=== PATIENT | male | born 1975 | race Caucasian/White ===

== ENCOUNTER 2017-07-23 14:11 | Outpatient (CLI) | payer BC ==
--- NOTE | 2017-07-23 15:42 | ULT ---
RENAL ULTRASOUND: 07/23/17 COMPARISON: None. HISTORY: Left flank pain and hematuria. TECHNIQUE: Multiplanar garrido scale and colon doppler images are obtained in a renal ultrasound. FINDINGS: The kidneys are normal in echogenicity without hydronephrosis or shadowing calculi and measure 11.5 and 13.3 cm in length on the right and left, respectively. The remainder of the visualization of the urinary bladder is unremarkable. IMPRESSION: Unremarkable renal ultrasound. POS: MIS[facility]
== END 2017-07-23 14:12 | disposition home or self-care (01) ==
LOC: SCSULT 14:11
PROVIDERS: ATTEND Family Medicine
DX: R31.9 Hematuria, unspecified (principal)
CPT/HCPCS: 76770

== ENCOUNTER 2018-12-16 09:45 | Outpatient (CLI) | payer OTHER ==
--- NOTE | 2018-12-16 12:17 | RAD ---
CERVICAL SPINE 2 VIEWS: HISTORY: Neck pain. FINDINGS: C7 and T1 are mostly obscured on the lateral view. No open mouth view is performed. There are minim al disk-osteophytosis changes mostly at C6-C7 with some uncovertebral hypertrophic changes and facet arthrosis. No evidence for significant malalignment. No prevertebral soft tissue swelling. IMPRESSION: Evidence for cervical spondylosis. POS: C
== END 2018-12-16 09:46 | disposition home or self-care (01) ==
LOC: RAD 09:45
PROVIDERS: ATTEND Neurological Surgery
DX: M47.22 Other spondylosis with radiculopathy, cervical region (principal)
CPT/HCPCS: 72040

== ENCOUNTER 2018-12-23 08:53 | Outpatient (CLI) | payer OTHER ==
--- NOTE | 2018-12-23 12:00 | MRI ---
MRI CERVICAL SPINE NONCONTRAST: Date: 12/23/18 HISTORY: 43-year-old male with cervical radiculopathy, M54.12. COMPARISON: None. FINDINGS: Incidental finding of a 2.0 x 1.5 cm T2-hyperintense and T1-intermediate to hypointense nodule in the left lobe of the thyroid gland. Cervical spinal canal is diffusely small in caliber on a developmental basis due to congenitally shor t pedicles. This is exacerbated by cervical spondylosis. Vertebral body heights are maintained. No sp ondylolisthesis. C1-2: No central stenosis. C2-3: Mild left facet DJD. Otherwise normal. C3-4: Central small disc extrusion with short distance superior and inferior migration of the small extruded disc material (versus disc-osteophyte complex). Moderate central spinal canal stenosis. Over all mild to moderate degree of central spinal canal stenosis. Small right uncinate process osteophyte s cause mild to moderate right neural foraminal stenosis. No left neural foraminal stenosis. Mild rig ht facet DJD. Normal left facet joint. C4-5: Moderate disc space narrowing. Central and left paracentral focal disc-osteophyte complex mild ly indents the left ventral surface of the spinal cord. Moderate central spinal canal stenosis. Small to moderate size right uncinate process osteophytes cause moderate right neural foraminal stenosis. Small left uncinate process osteophytes cause mild left neural foraminal stenosis. Minimal or mild bi lateral facet DJD. C5-6: Shallow central and bilateral paracentral disc-osteophyte complex encroaches upon the anterior aspect of the spinal canal, exacerbating the developmentally small caliber of the spinal canal with asymmetrically larger component of the right lateral aspect of the spinal canal, resulting in moderat e central spinal canal stenosis. Bilateral small uncinate process osteophytes. Mild to moderate right neural foraminal stenosis. No left neural foraminal stenosis. Mild to moderate right facet DJD. Esse ntially normal left facet joint. No high grade disc space narrowing. C6-7: Moderate disc space narrowing. Prominent broad based disc-osteophytic bar complex protrudes in to the anterior aspect of the spinal canal, asymmetrically larger at the right lateral aspect of the spinal canal than left, indenting the right ventral surface of the spinal cord, and displacing the sp inal cord posteriorly. Overall severe central spinal canal stenosis. Moderate sized bilateral uncinat e process osteophytes, right larger than left, resulting in severe right neural foraminal stenosis an d moderate left neural foraminal stenosis. Normal bilateral facet joints. C7-T1: No central stenosis. Moderate sized bilateral uncinate process osteophytes. Moderate right ne ural foraminal stenosis. Mild to moderate left neural foraminal stenosis. Bilateral moderate facet DJ D. IMPRESSION: 1. Predominantly mild cervical spondylosis with multilevel mild and moderate degenerative disc disea se, and predominantly mild facet osteoarthrosis, exacerbating a developmentally small caliber spinal canal. 2. At C6-7, there is severe central spinal canal stenosis (especially on the right side), severe rig ht neural foraminal stenosis, and moderate left neural foraminal stenosis. POS: [facility]IS[facility]
== END 2018-12-23 08:54 | disposition home or self-care (01) ==
LOC: TBSIIMAG 08:53
PROVIDERS: ATTEND Neurological Surgery
DX: M50.10 Cervical disc disorder with radiculopathy, unspecified cervical region (principal); M47.22 Other spondylosis with radiculopathy, cervical region; M48.02 Spinal stenosis, cervical region
CPT/HCPCS: 72141

== ENCOUNTER 2019-01-18 05:40 | Day surgery (SDC) | payer OTHER ==
[2019-01-11 14:17] VITALS: BMI 31.8
--- NOTE | 2019-01-17 14:31 | HP ---
This is Bakari Reynolds PA-C dictating a report for Mark Bowman MD. HISTORY OF PRESENT ILLNESS: Mr. Mercado is a pleasant 43-year-old man here for evaluation of severe neck, right upper extremity, shoulder and scapular arm pains that radiated into the hand. This is associated with numbness as well as extreme limitation in the use of his arm given the degree of pain that is caused with movement of his upper extremities. This seems to fit well with a C7 radiculopathy. He has an MRI from [facility] that reveals severe foraminal stenosis secondary to disk osteophyte complex at C6-C7 that would fit well with this. This all began back in July 2018 and has only worsened from there. He attempted home exercise continuously since September, has also attended epidural steroid injections and medications with limited relief. PAST MEDICAL HISTORY: Significant for asthma and seasonal allergies. PAST SURGICAL HISTORY: Appendectomy. CURRENT MEDICATIONS: Serevent, Qvar, Singulair, gabapentin, Zyrtec, and naproxen. ALLERGIES: NO KNOWN DRUG ALLERGIES. PHYSICAL EXAMINATION: GENERAL: The patient is alert and oriented x3. MUSCULOSKELETAL: He is in obvious distress and discomfort. Extreme limitation of motor examination of the right upper extremity secondary to pain. Positive Spurling's to the right. ASSESSMENT: Cervical radiculopathy. PLAN: Dr. Bowman met with the patient, reviewed imaging, advocated for C6-7 anterior cervical discectomy and fusion. He explained to the patient the risks, benefits, and alternatives to the procedure. The patient expressed understanding and would like to move forward with surgery as discussed. I do believe the patient is mentally competent capable of making medical decisions for himself, and we will move forward with surgery as planned. Job ID: [id number]
[2019-01-18] MEDS ORDERED: Midazolam HCl 2 mg/2 ml Vial ONE (06:20)
[2019-01-18] MEDS ORDERED: Fentanyl 250 MCG/5 ML VIAL ONE (06:23)
[2019-01-18] MEDS ORDERED: Thrombin 5000 UNITS/5 ML VIAL ONE (06:24)
[2019-01-18] MEDS ORDERED: Sodium Chloride 0.9% 20 ML ONE (06:32)
[2019-01-18] MEDS ORDERED: Fentanyl 100 MCG/2 ML VIAL ONE ×2 (08:51→09:30)
[2019-01-18] MEDS ORDERED: Tamsulosin HCl 0.4 MG CAP ONE (09:17)
--- NOTE | 2019-01-18 09:59 | OP ---
DATE OF PROCEDURE: 01/18/2019 [employer] [employer] SALESPERSON: Bakari Reynolds PA-C INDICATION: Pain. DIAGNOSIS: C7 radiculopathy. PROCEDURE PERFORMED: Anterior cervical diskectomy and fusion, C6-C7. ANESTHESIA: General. DESCRIPTION OF PROCEDURE: The patient was brought into the operating room and placed under general anesthesia. He was placed on the table in a supine position. A transverse incision was planned over the lateral aspect of his neck. After prepping and draping and after an appropriate preoperative pause, the incision was created. The underlying platysma muscle was identified and incised. A blunt tissue plane anterior to the sternocleidomastoid muscle was used to gain access to the prevertebral space. Self-retaining retractors were then placed in the wound for optimal exposure. After confirming the appropriate level with C-arm fluoroscopy, an annulotomy was performed at C6-C7 disk space were all disk material as well as anterior and posterior osteophytes were removed. Distraction pins were placed and under slight distraction, additional material was removed. After complete decompression, a 7-mm lordotic PEEK cage packed with allograft and autograft material was placed within the interbody space. Distraction pins were removed. Hemostasis was maintained throughout. The wound was then closed in anatomic layers and a pressure dressing was applied. There were no known procedural complications. Job ID: [id number]
[2019-01-18] MEDS ORDERED: Acetaminophen/Codeine 30-300mg Tablet ONE (12:14)
[2019-01-18] MEDS ORDERED: Glycopyrrolate 0.2 MG/ML 5 ML SYRINGE ONE (15:00)
[2019-01-18] MEDS ORDERED: Ketorolac Tromethamine 30 MG/ML VIAL ONE (15:00)
[2019-01-18] MEDS ORDERED: Lidocaine 1% PF 5 ML VIAL ONE (15:00)
[2019-01-18] MEDS ORDERED: Rocuronium Bromide 10 MG/ML (10ML VIAL) ONE (15:00)
[2019-01-18] MEDS ORDERED: Ondansetron PF 4 MG/2 ML Vial ONE (15:00)
[2019-01-18] MEDS ORDERED: PROPOFOL 200 MG/20 ML VIAL ONE (15:00)
== END 2019-01-18 12:30 | disposition home or self-care (01) ==
LOC: SDC 05:40
PROVIDERS: ATTEND Neurological Surgery
PROC: 0RG1071 Fusion of Cervical Vertebral Joint with Autologous Tissue Substitute, Posterior Approach, Posterior Column, Open Approach (ICD-10-PCS; principal; 2019-01-18)
PROC: 0RT30ZZ Resection of Cervical Vertebral Disc, Open Approach (ICD-10-PCS; principal; 2019-01-18)
PROC: 0RG1070 Fusion of Cervical Vertebral Joint with Autologous Tissue Substitute, Anterior Approach, Anterior Column, Open Approach (ICD-10-PCS; principal; 2019-01-18)
PROC: 0RG40A0 Fusion of Cervicothoracic Vertebral Joint with Interbody Fusion Device, Anterior Approach, Anterior Column, Open Approach (ICD-10-PCS; principal; 2019-01-18)
DX: M54.12 Radiculopathy, cervical region (principal); J45.909 Unspecified asthma, uncomplicated
CPT/HCPCS: 76000; C1776; J1885; J2001; J2250; J2405; J2704; J3010

== ENCOUNTER 2019-02-06 15:27 | Outpatient (CLI) | payer OTHER | END 2019-02-06 15:28 | disposition home or self-care (01) | LOC: CTENTCT 15:27 | PROVIDERS: ATTEND Otolaryngology Plastic Surgery within the Head & Neck | DX: J34.2 Deviated nasal septum (principal) | CPT/HCPCS: 70486 ==

== ENCOUNTER 2019-02-22 10:24 | Day surgery (SDC) | payer OTHER ==
[2019-02-21 16:39] VITALS: BMI 30.5
[2019-02-22] MEDS ORDERED: Oxymetazoline HCl 0.05% ( 15 ML ) ONE ×2 (12:23→12:43)
[2019-02-22] MEDS ORDERED: Bacitracin Zinc Ointment 30 gm TUBE ONE (12:43)
[2019-02-22] MEDS ORDERED: Fentanyl 100 MCG/2 ML VIAL ONE ×5 (12:43→15:24)
[2019-02-22] MEDS ORDERED: Lidocaine 1% w/Epinephrine 1:100K 20 ML VIAL ONE (12:43)
[2019-02-22] MEDS ORDERED: Midazolam HCl 2 mg/2 ml Vial ONE (12:43)
[2019-02-22] MEDS ORDERED: Glycopyrrolate 0.2 MG/ML 5 ML SYRINGE ONE (13:51)
[2019-02-22] MEDS ORDERED: Lidocaine 1% PF 5 ML VIAL ONE (13:51)
[2019-02-22] MEDS ORDERED: PROPOFOL 200 MG/20 ML VIAL ONE (13:51)
[2019-02-22] MEDS ORDERED: Ondansetron PF 4 MG/2 ML Vial ONE (13:51)
[2019-02-22] MEDS ORDERED: Rocuronium Bromide 10 MG/ML (10ML VIAL) ONE (13:51)
[2019-02-22] MEDS ORDERED: Dexamethasone 20 MG/5 ML VIAL ONE (13:51)
[2019-02-22] MEDS ORDERED: Promethazine HCl 25 MG/ML VIAL ONE (14:34)
[2019-02-22] MEDS ORDERED: HYDROcodone/Acetaminophen 5/325 mg Tablet ONE ×2 (16:03)
--- NOTE | 2019-02-23 09:50 | OP ---
DATE OF PROCEDURE: 02/22/2019 PREOPERATIVE DIAGNOSES: 1. Chronic rhinosinusitis. 2. Bilateral inferior turbinate hypertrophy. 3. Nasal septal deviation. 4. Nasal obstruction. 5. Snoring. POSTOPERATIVE DIAGNOSES: 1. Chronic rhinosinusitis. 2. Bilateral inferior turbinate hypertrophy. 3. Nasal septal deviation. 4. Nasal obstruction. 5. Snoring. PROCEDURES PERFORMED: 1. Bilateral endoscopic sinus surgery, total ethmoidectomies. 2. Bilateral endoscopic sinus surgery, maxillary antrostomies. 3. Bilateral endoscopic sinus surgery, frontal sinusotomies. 4. Nasal septoplasty. 5. Bilateral inferior turbinate submucosal resection. ESTIMATED BLOOD LOSS: 50 mL. COMPLICATIONS: None. ANESTHESIA: GETA. DESCRIPTION OF PROCEDURE: Patient was taken to the operating room and placed supine on the table. General endotracheal anesthesia was obtained by the anesthesia staff. Tube was secured in the left lower lip. Patient was then placed in the beach chair position, and Afrin pledgets were placed in the nasal cavity. Injections of 1% lidocaine with 1:100,000 epinephrine were made into the nasal septum as well as the inferior turbinates. Patient was then prepped and draped in standard surgical fashion for nasal surgery. Following this, the Afrin pledgets were removed. A Clifford incision was made on the left nasal septum. Submucoperichondrial dissection was performed. The deviated portions of the septum included portions of the cartilage and the bony septum. These isolated areas were removed using 3 cutting rongeurs. There was noted to be a large dorsal and caudal strut, left intact for support of the nose. The mucoperichondrial flaps were then reapproximated using a 4-0 gut stitch. Any straight pieces of cartilage were crushed prior to this and placed between the mucoperichondrial flaps. Following this, the inferior turbinates were then punctured with a submucosal coblation wand, and submucosal coblations were performed of multiple areas of the inferior portion of the anterior inferior turbinate. Please note that the submucosal microdebrider was used to anteriorly and inferiorly resect the submucosal portions of the inferior turbinates. Following this, the inferior turbinates were laterally fractured with a [place] elevator. Following this, a 0-degree endoscope was advanced in the middle meatus. The middle turbinates were identified and were gently medialized. Using a [place] elevator, there was a small howard bullosa present, which was removed with the microdebrider taking down the lateral wall of the middle turbinate. Following this, the uncinate process was identified and was anteriorly fractured bilaterally using a ball-ended probe and was removed using the 0-degree microdebrider and up-biting Blakesley forceps. Following this, the ball-ended probe was then used to identify and palpate the natural maxillary sinus ostia bilaterally. This maxillary sinus ostia was then widened using the curved microdebrider and the straight [place] forceps bilaterally. Following this, the ethmoidal bulla was identified and was punctured on its medial and inferior aspect and was removed using the microdebrider and the up-biting [place] forceps. Following this, the grand lamella was identified and was then punctured into the posterior ethmoidal cells working from posterior to anterior. The ethmoidal cells were opened in a mucosal-sparing technique. Following this, 45-degree scope and the curved microdebrider were then used to further open the anterior ethmoidal cells and frontal recess and frontal sinus ostia bilaterally. Following this, nasal cavity was irrigated. Mirapex was placed in the middle meatus. Hope splints were placed and secured. The patient tolerated the procedure well. Job ID: [id number]
== END 2019-02-22 17:20 | disposition home or self-care (01) ==
LOC: SDC 10:24
PROVIDERS: ATTEND Otolaryngology Plastic Surgery within the Head & Neck
PROC: 099R8ZZ Drainage of Left Maxillary Sinus, Via Natural or Artificial Opening Endoscopic (ICD-10-PCS; principal; 2019-02-22)
PROC: 09TR8ZZ Resection of Left Maxillary Sinus, Via Natural or Artificial Opening Endoscopic (ICD-10-PCS; principal; 2019-02-22)
PROC: 09TQ8ZZ Resection of Right Maxillary Sinus, Via Natural or Artificial Opening Endoscopic (ICD-10-PCS; principal; 2019-02-22)
PROC: 09TL8ZZ Resection of Nasal Turbinate, Via Natural or Artificial Opening Endoscopic (ICD-10-PCS; principal; 2019-02-22)
PROC: 099Q8ZZ Drainage of Right Maxillary Sinus, Via Natural or Artificial Opening Endoscopic (ICD-10-PCS; principal; 2019-02-22)
PROC: 09SM4ZZ Reposition Nasal Septum, Percutaneous Endoscopic Approach (ICD-10-PCS; principal; 2019-02-22)
DX: J34.3 Hypertrophy of nasal turbinates (principal); J32.9 Chronic sinusitis, unspecified; J34.2 Deviated nasal septum; J34.89 Other specified disorders of nose and nasal sinuses; J38.01 Paralysis of vocal cords and larynx, unilateral; J45.909 Unspecified asthma, uncomplicated
CPT/HCPCS: 93005; 93010; J1100; J2001; J2250; J2405; J2550; J2704; J3010

== ENCOUNTER 2019-03-29 13:38 | Outpatient (CLI) | payer OTHER ==
--- NOTE | 2019-03-29 16:35 | MRI ---
MRI LEFT KNEE WITHOUT CONTRAST: 03/29/19 HISTORY: Knee pain. COMPARISON: None. FINDINGS: MEDIAL MENISCUS: Intact. LATERAL MENSICUS: Intact. The ACL, PCL, MCL AND LCL are all intact. EXTENSOR MECHANISM: Quadriceps tendon, patella, and patellar tendon are intact. CARTILAGE: There are multifocal full thickness cartilage fissures in the medial trochlea with subcortical reacti ve marrow changes. This occurs in a focal area measuring 5 x 7 mm. Also, focal areas of chondral davis mination along the medial patella. High grade fissures of the central trochlea. MEDIAL COMPARTMENT: Small osteophyte formation. No chondral defect. LATERAL COMPARTMENT: Intact. Posterior flexion zones are intact. SOFT TISSUES: No significant popliteal bursa effusion. Normal amount of joint fluid. BONES: No fracture or malalignment. No contusion. MUSCLES: The muscle signal and bulk is normal. 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 There is a 5 x 7 mm foci of full thickness cartilage fissuring of the medial trochlea with subcorti myra reactive marrow changes. There are also a 4 x 5 mm area of chondral delamination medial patellar facet as well as high grade cartilage fissures of the central trochlea. POS: [facility]
== END 2019-03-29 13:39 | disposition home or self-care (01) ==
LOC: SCSMRI 13:38
PROVIDERS: ATTEND Orthopaedic Surgery
DX: S83.242A Other tear of medial meniscus, current injury, left knee, initial encounter (principal); M94.262 Chondromalacia, left knee

== ENCOUNTER 2019-06-24 03:41 | Emergency (ER) | payer OTHER ==
[2019-06-24 10:12] LABS: HIV (1/2) Antibody/Antigen Non-Reactive (NonReactive); HIV 1/2 INDEX 0.07 S/CO (<1.00); Hep C IgG Ab Non-Reactive (NonReactive); Hep C Index 0.09 S/CO (0-0.79)
[2019-06-24 10:18] LABS: HBSAB Concentration 855.47 mIU/mL; Hep B Surf AB Reactive (NonReactive)
== END 2019-06-24 04:33 | disposition home or self-care (01) ==
LOC: SCSER 03:41
DX: Z77.21 Contact with and (suspected) exposure to potentially hazardous body fluids (principal); J45.909 Unspecified asthma, uncomplicated
CPT/HCPCS: 86706; 86803; 87389; 99283

== ENCOUNTER 2022-12-07 10:46 | Outpatient (CLI) | payer OTHER | END 2022-12-07 10:47 | disposition home or self-care (01) | LOC: SCSRAD 10:46 | PROVIDERS: ATTEND Nurse Practitioner Family | DX: S69.92XA Unspecified injury of left wrist, hand and finger(s), initial encounter (principal); S61.255A Open bite of left ring finger without damage to nail, initial encounter; W54.0XXA Bitten by dog, initial encounter ==

== ENCOUNTER 2023-01-12 08:06 | Outpatient (CLI) | payer OTHER | END 2023-01-12 08:07 | disposition home or self-care (01) | LOC: SCSMRI 08:06 | PROVIDERS: ATTEND Orthopaedic Surgery Hand Surgery | DX: W54.0XXA Bitten by dog, initial encounter (principal); R60.0 Localized edema ==

== ENCOUNTER 2023-01-22 10:38 | Day surgery (SDC) | payer OTHER ==
[2023-01-20 14:08] VITALS: BMI 33.9
[2023-01-22 11:47] LABS: #Basophils 0.1 thou/uL (0.0-0.2); #Eosinphils 0.1 thou/uL (0.0-0.7); #Monocytes 0.7 thou/uL (0.11-0.59); #Neutrophils 4.9 thou/uL (1.40-6.50); %Eosinophils 1.5 % (0.0-10.0); %Lymphocytes 25.6 % (21.0-51.0); %Monocytes 8.9 % (0.0-10.0); %Neutrophils 63.1 % (42.0-75.0); Hemoglobin 16.9 g/dL (14.0-18.0); Mean Corpuscular HGB CONC 33.7 g/dL (32.0-36.0); Mean Corpuscular Hemoglobin 31.8 pg (27.0-31.0); Mean Corpuscular Volume 94.2 fl (78.0-98.0); Mean Platelet Volume 7.4 fL (7.4-10.4); Platelet Count 266 10x3/uL (130-400); RBC Distribution Width 11.4 % (11.5-14.5); Red Blood Cell (RBC) Count 5.32 mill/uL (4.70-6.10); White Blood Cell (WBC) Count 7.7 10x3/uL (4.8-10.8)
[2023-01-22] MEDS ORDERED: Bacitracin Zinc Ointment 30 gm TUBE ONE (13:48)
[2023-01-22] MEDS ORDERED: Neomycin-Polymyxin 1 ML AMP ONE (13:48)
[2023-01-22] MEDS ORDERED: Bupivacaine PF 0.5% 30 ML VIAL ONE (13:48)
[2023-01-22] MEDS ORDERED: fentaNYL 50 mcg/mL 1 mL Vial ONE (14:32)
[2023-01-22] MEDS ORDERED: Midazolam HCl 2 mg/2 ml Vial ONE (14:32)
[2023-01-22] MEDS ORDERED: Sodium Chloride 0.9% 100 ML ONE (14:42)
[2023-01-22] MEDS ORDERED: CEFAZOLIN 2 GM VIAL ONE (14:42)
[2023-01-22] MEDS ORDERED: Dexamethasone 20 MG/5 ML VIAL ONE (14:50)
[2023-01-22] MEDS ORDERED: Lidocaine 1% PF 5 ML VIAL ONE (14:50)
[2023-01-22] MEDS ORDERED: PROPOFOL 200 MG/20 ML VIAL ONE (14:50)
[2023-01-22] MEDS ORDERED: Ondansetron PF 4 MG/2 ML Vial ONE (14:50)
[2023-01-22] MEDS ORDERED: Ketorolac Tromethamine 30 MG/ML VIAL ONE (16:38)
[2023-01-22] MEDS ORDERED: Vancomycin (BATCH) 1.5 GRAM/300 ML BAG ONE (16:40)
== END 2023-01-22 19:10 | disposition home or self-care (01) ==
LOC: SDC 10:38
PROVIDERS: ATTEND Orthopaedic Surgery Hand Surgery
PROC: 0JNK0ZZ Release Left Hand Subcutaneous Tissue and Fascia, Open Approach (ICD-10-PCS; principal; 2023-01-22)
PROC: 0LT80ZZ Resection of Left Hand Tendon, Open Approach (ICD-10-PCS; principal; 2023-01-22)
DX: M72.0 Palmar fascial fibromatosis [Dupuytren] (principal); M65.842 Other synovitis and tenosynovitis, left hand; G90.50 Complex regional pain syndrome I, unspecified; G58.8 Other specified mononeuropathies; J45.909 Unspecified asthma, uncomplicated; Z86.16 Personal history of COVID-19; Z79.899 Other long term (current) drug therapy; Z88.8 Allergy status to other drugs, medicaments and biological substances; Z98.1 Arthrodesis status
CPT/HCPCS: 85025; 87070; 87205; 88304; 88305; J1100; J1885; J2250; J2405; J2704; J3010; J3370; J3490; S0020

== ENCOUNTER 2023-01-29 12:28 | Day surgery (SDC) | payer OTHER ==
[2023-01-28 12:03] VITALS: BMI 33.9
[2023-01-29] MEDS ORDERED: Sodium Chloride 0.9% 100 ML ONE (15:05)
[2023-01-29] MEDS ORDERED: CEFAZOLIN 2 GM VIAL ONE (15:05)
[2023-01-29] MEDS ORDERED: fentaNYL PF 100 MCG/2 ML SYRINGE ONE (15:08)
[2023-01-29] MEDS ORDERED: Dexamethasone 20 MG/5 ML VIAL ONE (15:17)
[2023-01-29] MEDS ORDERED: PROPOFOL 200 MG/20 ML VIAL ONE (15:17)
[2023-01-29] MEDS ORDERED: Ondansetron PF 4 MG/2 ML Vial ONE (15:17)
[2023-01-29] MEDS ORDERED: Lidocaine 1% PF 5 ML VIAL ONE (15:17)
[2023-01-29] MEDS ORDERED: Bacitracin Zinc Ointment 30 gm TUBE ONE (15:55)
[2023-01-29] MEDS ORDERED: fentaNYL 50 mcg/mL 1 mL Vial ONE ×2 (16:21→16:34)
[2023-01-29] MEDS ORDERED: Ketorolac Tromethamine 30 MG/ML VIAL ONE (16:34)
== END 2023-01-29 17:25 | disposition home or self-care (01) ==
LOC: SDC 12:28
PROVIDERS: ATTEND Orthopaedic Surgery Hand Surgery
PROC: 0JBK0ZZ Excision of Left Hand Subcutaneous Tissue and Fascia, Open Approach (ICD-10-PCS; principal; 2023-01-29)
PROC: 0HQGXZZ Repair Left Hand Skin, External Approach (ICD-10-PCS; principal; 2023-01-29)
DX: S61.203A Unspecified open wound of left middle finger without damage to nail, initial encounter (principal); S61.205A Unspecified open wound of left ring finger without damage to nail, initial encounter; S61.402A Unspecified open wound of left hand, initial encounter; G90.50 Complex regional pain syndrome I, unspecified; G58.8 Other specified mononeuropathies; J45.909 Unspecified asthma, uncomplicated; Z79.899 Other long term (current) drug therapy; Z88.8 Allergy status to other drugs, medicaments and biological substances; Z98.1 Arthrodesis status; Z98.890 Other specified postprocedural states
CPT/HCPCS: J1100; J1885; J2405; J2704; J3010; J3490

== ENCOUNTER 2023-07-20 11:48 | Outpatient (CLI) | payer OTHER | END 2023-07-20 11:49 | disposition home or self-care (01) | LOC: EDSTATUS 15:20 | PROVIDERS: ATTEND Nurse Practitioner Family | DX: S61.253A Open bite of left middle finger without damage to nail, initial encounter (principal); M65.9 Synovitis and tenosynovitis, unspecified; M79.2 Neuralgia and neuritis, unspecified ==